=== PATIENT | female | born 1990 | race Caucasian/White ===

== ENCOUNTER 2018-11-04 08:10 | Emergency (ER) | payer OTHER ==
[2018-11-04] MEDS ORDERED: NS 1,000 ML IV ONE (08:36)
[2018-11-04] MEDS ORDERED: HYDROmorphONE/DILAUDID 2 MG/ML INJ IVP ONE ×2 (08:36→09:43)
[2018-11-04] MEDS ORDERED: ONDANSETRON 4 MG/2 ML VIAL IVP ONE ×2 (08:36→10:53)
--- NOTE | 2018-11-04 08:41 | EDPHY ---
H & P Time Seen by Provider: 11/04/18 08:13 HPI/ROS: HPI Lower abdominal pain. 28-year-old female by private vehicle with her boyfriend. This patient reports onset of lower abdominal pain, much more pronounced in the right lower quadrant of her abdomen, onset at 1:00 a.m. This morning. Pain described as sharp and cramping. Last meal was yesterday evening at about 7:00 p.m.. No prior abdominal surgical history. She has had some mild nausea but no vomiting. No diarrhea. Last bowel movement was yesterday. No bloody or melenic stool. Last menstrual. Was October 07. She denies urinary complaints. No vaginal discharge. ROS: Constitutional: No fever, no chills. No weakness. Eyes: No discharge. No changes in vision. ENT: No sore throat. No nasal congestion or rhinorrhea. Respiratory: No cough. No shortness of breath. Cardiac: No chest pain, no palpitations. Gastrointestinal: As above, no vomiting, no diarrhea. Genitourinary: No hematuria. No dysuria or increased frequency with urination. Musculoskeletal: No back pain. No neck pain. No myalgias or arthralgias. Skin: No rashes. Neurological: No headache. No focal weakness or altered sensation. Past medical history: Lupus, endometriosis. She currently is not taking any prescription medications. Social history: Nonsmoker. Here with boyfriend. No alcohol. Physical Exam: General Appearance: Alert, she appears uncomfortable. This patient is responding to questions appropriately and in full sentences. This patient appears well-hydrated and well-nourished. Eyes: Pupils equal and round no pallor or injection. No lid edema, erythema or injection. Respiratory: There are no retractions, lungs are clear to auscultation with good air movement bilaterally. Cardiovascular: Regular rate and rhythm. No murmur. Gastrointestinal: Abdomen is soft with mild to moderate tenderness on palpation of the right lower quadrant, no masses, bowel sounds normal. No focal tenderness at McBurney's point. No Talamantes sign. Neurological: Motor sensory function is grossly intact. Cranial nerves are normal. Gait is normal. Skin: Warm and dry, no rashes. Musculoskeletal: Neck is supple and nontender. Extremities are symmetrical. All joints range without pain or impingement. Psychiatric: No agitation. No depression. Database: EKG: Imaging: CT abdomen and pelvis with IV contrast: The appendix is well visualized and is normal. An incidental ground-glass opacity is seen in the left lower lung base. Inflammatory versus infectious. Unclear chronicity. She does have significant constipation. Study is otherwise unremarkable. Results were discussed with staff radiologist Dr. Mando Witt. Pelvic ultrasound: Negative. Results were discussed with staff radiologist Dr. Mando Witt. Procedures: Emergency department course: Triage vital signs reviewed and are normal. IV was placed. She was started on IV normal saline with 1 L to be given over the next hour. For pain medication she will be given 0.5 mg of IV hydromorphone initially as well as 4 mg of IV Zofran. CT imaging to be obtained to evaluate for appendicitis. She endorses. 9:45 a.m., the patient was re-evaluated, results of her CT scan and need for an ultrasound to evaluate her ovary was discussed. I described the finding involving her left lower lung base. I explained that she will need to have this followed up by her primary care physician. She endorses this plan. She was given an additional 0.5 mg of IV hydromorphone for pain. 11:00 a.m., patient re-evaluated, she is feeling much better at this time. Repeat abdominal exam she is soft with mild and vague tenderness across her lower abdomen. She has been drinking oral fluids without issue. Results of her ultrasound discussed with her and her boyfriend. She feels comfortable going home at this time and I feel she is safe for discharge. I will treat her for constipation with GoLYTELY. This was discussed with her. Follow-up and return to emergency department precautions reviewed. All of her questions were answered. She was discharged from the emergency department in good condition. Prior to discharge, the patient was complaining of returning lower abdominal pain, she was given 30 mg of IV Toradol. She was observed for another 30 min. Her pain resolved. Repeat abdominal exam she was soft, nontender nondistended. She was discharged in good condition with her mother. Differential Diagnosis: The differential diagnosis on this patient includes but is not limited to constipation, appendicitis, ruptured ovarian cyst, ovarian torsion, colitis, ureterolithiasis. This represents a partial list of diagnoses considered. These considerations are based on history, physical exam, past history, reassessment and diagnostic testing. Smoking Status: Never smoked Constitutional: Initial Vital Signs Temperature (C) 36.4 C 11/04/18 08:14 Heart Rate 72 11/04/18 08:14 Respiratory Rate 16 11/04/18 08:14 Blood Pressure 124/74 H 11/04/18 08:14 O2 Sat (%) 94 11/04/18 08:14 O2 Delivery Mode Room Air Allergies/Adverse Reactions: No Known Allergies Allergy (Unverified 11/04/18 08:20) Home Medications: Medication Instructions Recorded Ondansetron Odt [Zofran Odt 4 mg 4 mg PO Q4PRN PRN #10 tab 11/04/18 (*)] Peg 3350/Na Sulf,Bicarb,Cl/KCl 4,000 ml PO ONCE #1 btl 11/04/18 [Golytely (RX)] Medical Decision Making - Diagnostics Imaging Results: Imaging Impressions Abdomen CT 11/04/18 08:36 Impression: 1. Normal CT appearance of the appendix. 2. Moderate constipation. 3. There is a benign-appearing 1.5 x 1.5 x 1.7 cm hemangioma in the inferomedial right hepatic lobe. 4. Nonspecific groundglass attenuation inflammatory versus infectious pneumonitis, left lower lobe with some mild peribronchial thickening. Clinical correlation suggested. Findings were discussed with Alina Paula MD at 9:34, on 11/04/2018, who may pursue further sonographic evaluation of the ovaries given the patient' s level of discomfort. Pelvic/Renal Ultrasound 11/04/18 09:40 Impression: Normal. Findings were discussed with Alina Paula MD at 10:51, on 11/04/2018. - Data Points Laboratory Results: 11/04/18 08:57 POC Hgb 13.9 gm/dL gm/dL (12.6-16.3) POC Hct 41 % % (38-47) POC Sodium 141 mEq/L mEq/L (135-145) POC Potassium 4.0 mEq/L mEq/L (3.3-5.0) POC Chloride 107 mEq/L mEq/L (97-110) POC BUN 14 mg/dL mg/dL (7-23) POC Creatinine 0.7 mg/dL mg/dL (0.6-1.0) POC Glucose 100 mg/dL mg/dL (70-100) Medications Given: Discontinued Medications Hydromorphone HCl (Dilaudid) 0.5 mg IVP EDNOW ONE Stop: 11/04/18 08:37 Last Admin: 11/04/18 08:56 Dose: 0.5 mg Hydromorphone HCl (Dilaudid) 0.5 mg IVP EDNOW ONE Stop: 11/04/18 09:44 Last Admin: 11/04/18 09:49 Dose: 0.5 mg Sodium Chloride (Ns) 1,000 mls @ 0 mls/hr IV EDNOW ONE; Wide Open PRN Reason: Protocol Stop: 11/04/18 08:37 Last Admin: 11/04/18 08:50 Dose: 1,000 mls Ketorolac Tromethamine (Toradol) 30 mg IVP EDNOW ONE Stop: 11/04/18 11:16 Last Admin: 11/04/18 11:18 Dose: 30 mg Ondansetron HCl (Zofran) 4 mg IVP EDNOW ONE Stop: 11/04/18 08:37 Last Admin: 11/04/18 08:56 Dose: 4 mg Ondansetron HCl (Zofran) 4 mg IVP EDNOW ONE Stop: 11/04/18 10:54 Last Admin: 11/04/18 10:56 Dose: 4 mg Point of Care Test Results: CBC CBC Collection Date 11/04/18 CBC Collection Time 08:45 WBC 8.5 RBC 4.64 HGB 13.5 HCT 39.7 PLT 264 Neut # 6.0 Neut 70.9 LYMPH # 1.7 LYMPH 19.5 Other WBC # 0.8 Other WBC 9.6 MCV 85.6 Chemistry 11/04/18 08:57 POC Sodium 141 mEq/L mEq/L (135-145) POC Potassium 4.0 mEq/L mEq/L (3.3-5.0) POC Chloride 107 mEq/L mEq/L (97-110) POC BUN 14 mg/dL mg/dL (7-23) POC Creatinine 0.7 mg/dL mg/dL (0.6-1.0) POC Glucose 100 mg/dL mg/dL (70-100) ISTAT H&H 11/04/18 08:57 POC Hgb 13.9 gm/dL gm/dL (12.6-16.3) POC Hct 41 % % (38-47) Urine Collection Date 11/04/18 Collection Time 08:40 HCG Results Negative Urine Dip Collection Date 11/04/18 Collection Time 08:45 Specific [place] (1.002-1.030) 1.025 PH (5.0-7.5) 6.5 Leukocytes (Negative) Negative Nitrites (Negative) Negative Protein (Negative) Trace Glucose (Negative) Negative Ketones (Negative) Negative Urobilnogen (0.2-1.0 EU) 0.2 Bilirubin (Negative) Negative Blood (Negative) 3+ Departure - Departure Disposition: Home, Routine, Self-Care Clinical Impression: Lower abdominal pain, Constipation Condition: Good Instructions: Constipation (ED) Additional Instructions: Read and follow provided instructions. Follow-up with your primary care physician in 1-2 days for re-evaluation. You will need to have your primary care physician follow-up on the CT finding involving your left lower lung as discussed. Take medication as prescribed for constipation. Return to the emergency department for worsening pain, vomiting, fever, bloody stool or other serious concerns. Referrals: NONE *PRIMARY CARE P,. [Primary Care Provider] - As per Instructions Prescriptions: Ondansetron Odt [Zofran Odt 4 mg (*)] 4 mg PO Q4PRN PRN #10 tab PRN Reason: For Nausea & Vomiting Peg 3350/Na Sulf,Bicarb,Cl/KCl [Golytely (RX)] 4,000 ml PO ONCE #1 btl
[2018-11-04] MEDS ORDERED: IOPAMIDOL (ISOVUE-300) 100 ML BTL ONE (08:45)
[2018-11-04] MEDS ORDERED: KETOROLAC 30 MG/1 ML SDV IVP ONE (11:15)
[2018-11-04] MEDS ORDERED: KETOROLAC 30 MG/1 ML SDV ONE (11:15)
[2018-11-04 11:52] VITALS: BP 105/65
== END 2018-11-04 12:02 | disposition home or self-care (01) ==
LOC: CED 08:10
DX: R10.31 Right lower quadrant pain (principal); E86.9 Volume depletion, unspecified; K59.00 Constipation, unspecified
CPT/HCPCS: 74177-PO; 76856-PO; 82435-PO; 82565-PO; 82947-PO; 84132-PO; 84295-PO; 84520-PO; 85014-ER; 96361-ER; 96374-ER; 96375-ER; 96376-ER; J1170; J1885; J2405; Q9967